=== PATIENT | male | born 1970 | race Caucasian/White ===

== ENCOUNTER 2023-03-07 07:48 | Day surgery (SDC) | payer OTHER, SELFPAY ==
--- NOTE | 2023-03-06 14:34 | HO.ANESPROP2 ---
Documented by User: Maria Fernanda Torres NP 03/06/23 14:34 HPI - Anesthesia Eval Consult details Narrative: 52yo M for Upper Endoscopy and Colonoscopy [facility] Past Medical History Medical History Kidney calculi Osteoarthritis Elevated cholesterol Seasonal allergic rhinitis Back pain Nephrolithiasis CECILE on CPAP Surgical History Surgical History H/O cystoscopy H/O umbilical hernia repair H/O inguinal hernia repair H/O knee surgery Social History Social History Patient Tobacco Use Status: Never used Tobacco Are you DNR?: No Advance Directives: No Advance Directives Information Provided: Yes Nutrition Risks: No Nutritional Risk Meds Allergies Allergy/AdvReac Type Severity Reaction Status Date / Time acetaminophen [Percocet] Allergy Unknown rash Verified 05/29/15 00:00 oxycodone [Percocet] Allergy Unknown rash Verified 05/29/15 00:00 chlorhexidine Allergy Hives Verified 03/07/23 08:51 povidone-iodine AdvReac Intermediate ITCHING,MIRTA Verified 03/07/23 08:56 [From BETADINE] H soap [From BETADINE] AdvReac Intermediate ITCHING,MIRTA Verified 03/07/23 08:56 H From PERCOCET AdvReac Mild NAUSEA & Uncoded 03/07/23 08:56 VOMITING Home Medications Medication Instructions Recorded Confirmed Last Taken Type potassium citrate PO DIRECTED 03/06/23 Unknown History Exam Exam Date and Time: March 06, 2023 069 Assessment and Plan Assessment Anesthesia Assessment: Chart Reviewed Documented by User: Katalina Richardson MD 03/07/23 10:08 [facility] Active Problems Active Problems: CECILE- needed Nasopharyngeal airway in the past. Woke up during lithotripsy ?Obstruction with lightening of anesthesia Past Medical History Medical History Kidney calculi Osteoarthritis Elevated cholesterol Seasonal allergic rhinitis Back pain Nephrolithiasis CECILE on CPAP Family History Family history of problems with anesthesia: No Surgical History Surgical History H/O cystoscopy H/O umbilical hernia repair H/O inguinal hernia repair H/O knee surgery History of Problems with Anesthesia: No Social History Social History Patient Tobacco Use Status: Never used Tobacco Are you DNR?: No Advance Directives: No Advance Directives Information Provided: Yes Nutrition Risks: No Nutritional Risk Meds Allergies Allergy/AdvReac Type Severity Reaction Status Date / Time acetaminophen [Percocet] Allergy Unknown rash Verified 05/29/15 00:00 oxycodone [Percocet] Allergy Unknown rash Verified 05/29/15 00:00 chlorhexidine Allergy Hives Verified 03/07/23 08:51 povidone-iodine AdvReac Intermediate ITCHING,MIRTA Verified 03/07/23 08:56 [From BETADINE] H soap [From BETADINE] AdvReac Intermediate ITCHING,MIRTA Verified 03/07/23 08:56 H From PERCOCET AdvReac Mild NAUSEA & Uncoded 03/07/23 08:56 VOMITING Home Medications Medication Instructions Recorded Confirmed Last Taken Type potassium citrate PO DIRECTED 03/06/23 Unknown History Exam Height,Weight and Vital Signs: Height 6 ft Weight 111.13 kg Vital Signs Temp Pulse Resp BP Pulse Ox O2 Del Method 03/07/23 08:38 97.3 F 77 20 125/68 97 Room Air Airway Mallampati Class: II TM Dist: >3cm Neck ROM: Full Loose/Missing/Broken Teeth: No (Temporary fillings molars left bottom. Denies broken,loose,missing teeth) Heart: RRR Lungs: CTAB Assessment and Plan Assessment Anesthesia Assessment: Anesthesia Plan Discussed Final Anesthetic Review Family History of Problems with Anesthesia: No History of Problems with Anesthesia: No NPO: Yes ASA Class: III Final Preanesthetic Review: No Changes in Pt Med Stat, Meds/Allgs Chart Reviewed, Consent Obtained/Reviewed and Anes Risks/Benef Reviewed Patient Risk: Intermediate Procedure Risk: Low Assessment/Block/Sedation in SS: Assess/Block/Sedation-SS Anesthetic Plan Anesthetic Plan: GA and MAC: Disposition: Standard PACU
[2023-03-07 05:59] VITALS: BMI 33.2
[2023-03-07 08:38] VITALS: BP 125/68; PULSE 77; RESP 20; TEMP 36.3; O2SAT 97
[2023-03-07] MEDS: Lactated Ringers 1,000 ML 100 ML IVCONT (08:55)
--- NOTE | 2023-03-07 09:55 | MHC.SHP ---
Pre-Procedural Eval Section A Date of Service: 03/07/23 Section B Chief Complaint: rectal bleeding,reflux disease Details of Present Illness: see H&P no changes Relevant Family History (Specify if Yes): No Relevant Social History: None Present Medications: see Short Stay Collaborative assessment Medical History: No relevant PMH History of Previous Operations: No relevant previous surgery Allergies: Allergies Allergy/AdvReac Type Severity Reaction Status Date / Time acetaminophen [Percocet] Allergy Unknown rash Verified 05/29/15 00:00 oxycodone [Percocet] Allergy Unknown rash Verified 05/29/15 00:00 chlorhexidine Allergy Hives Verified 03/07/23 08:51 povidone-iodine AdvReac Intermediate ITCHING,MIRTA Verified 03/07/23 08:56 [From BETADINE] H soap [From BETADINE] AdvReac Intermediate ITCHING,MIRTA Verified 03/07/23 08:56 H From PERCOCET AdvReac Mild NAUSEA & Uncoded 03/07/23 08:56 VOMITING Review of Systems Sugical H&P ROS: Negative: Constitution, Cardiovascular, Respiratory, Neurological, Psychiatric, Hem-Onc, Allergic/Immunologic, Gastrointestinal, Genitourinary, Musculoskeletal, Integumentary, Endocrine and Eyes/Ears/Nose/Throat Exam Surgical H&P Exam: Normal: HEENT, Normal: Heart, Normal: Lungs, Normal: Extremities, Normal: Abdomen, Normal: Skin and Normal: Neurological Plan Diagnosis/Plan: Unchanged I have reviewed the history and physical and performed a pertinent physical examination on my patient. No changes have occurred unless specified. Time Spent With Patient Time: Total time managing care of this patient today ____ minutes.
--- NOTE | 2023-03-07 10:31 | PM.OP ---
Brief Operative Note Date of Service: 03/07/23 Pre-op diagnosis: gerd rectal bleeding Post-op diagnosis: same Procedure: egd colonoscopy Surgeon: Tim Arvizu MD Anesthesia: MAC Was an Corrective Therapy Aide Teacher used for this Procedure?: No Estimated blood loss (mL): 5 Pathology: other Condition: stable Disposition: PACU
[2023-03-07 10:36] VITALS: BP 115/75; PULSE 80; RESP 16; TEMP 36.8; O2SAT 98
[2023-03-07 10:51] VITALS: BP 123/85; PULSE 79; RESP 18; O2SAT 98
[2023-03-07 11:06] VITALS: BP 125/84; PULSE 67; RESP 18; TEMP 36.3; O2SAT 98
--- NOTE | 2023-03-07 11:12 | OP_ITS ---
DATE OF SERVICE: 03/07/2023 SURGEON: Tim Arvizu MD INDICATIONS: 1. Gastroesophageal reflux disease. 2. Rectal bleeding. PREOPERATIVE DIAGNOSIS: POSTOPERATIVE DIAGNOSIS: PROCEDURE PERFORMED: Upper endoscopy with biopsy, colonoscopy to the terminal ileum with biopsy. ESTIMATED BLOOD LOSS: COMPLICATIONS: ANESTHESIA: Monitored anesthesia care. ASSISTANTS: SPECIMENS: DESCRIPTION OF PROCEDURE: A history and physical was performed. The risks and benefits of the procedure were explained to the patient. Informed consent was obtained. The patient was placed in the left lateral decubitus position. The Olympus video gastroscope was introduced into the esophagus, stomach, and duodenum. Examination was performed. The scope was removed he was repositioned for colonoscopy. A digital rectal exam was performed and was found to be normal. The Olympus pediatric video colonoscope was introduced into the rectum and advanced to the cecum. The cecum was identified by transillumination, palpation, and identification of ileocecal valve. Examination was performed. The scope was removed. He tolerated the procedure well and was returned to the recovery area in stable condition. FINDINGS: Upper endoscopy: 1. Esophagus: The esophagus showed a mild distal esophagitis. Biopsies were obtained from the EG junction. There was no evidence of Ludwig esophagus. 2. Stomach: The stomach showed no evidence of masses, ulcers, or polyps. Antral biopsies were obtained to evaluate for H pylori. 3. Duodenum: The bulb and 2nd portion were normal. Colonoscopy: The terminal ileum was examined and appeared normal. The visualized colonic mucosa was within normal limits without evidence of masses or ulcers. The quality of the prep was good. A single polyp measuring less than 5 mm was identified in the right colon at about 80 cm were removed with a biopsy forceps. Retroflexed examination showed some internal hemorrhoids. IMPRESSION: 1. Gastroesophageal reflux disease with esophagitis. 2. Colon polyp. RECOMMENDATION: Follow up the biopsy results. MD LINNETTE Leung/JENNIFER / [id number]
== END 2023-03-07 11:45 | disposition home or self-care (01) ==
PROVIDERS: PCP Internal Medicine; Visit Provider Internal Medicine Gastroenterology
PROC: (CPT 45380; principal; 2023-03-07 09:20)
DX: K62.5 Hemorrhage of anus and rectum (principal); K63.5 Polyp of colon; K64.8 Other hemorrhoids; K59.00 Constipation, unspecified; K21.9 Gastro-esophageal reflux disease without esophagitis; K20.80 Other esophagitis without bleeding; E78.00 Pure hypercholesterolemia, unspecified; G47.33 Obstructive sleep apnea (adult) (pediatric); J30.2 Other seasonal allergic rhinitis; Z99.89 Dependence on other enabling machines and devices; Z79.899 Other long term (current) drug therapy; Z87.891 Personal history of nicotine dependence; Z91.041 Radiographic dye allergy status
CPT/HCPCS: 45380; 43239; 88305; 88342; J2250